=== PATIENT | female | born 1990 | race Caucasian/White ===

== ENCOUNTER 2016-06-01 18:09 | Inpatient (IN) | payer MEDICAID ==
[~2016-06-01] VITALS: Ht 170.2 cm; Wt 92.7 kg
[2016-06-01 18:16] VITALS: Ht 170.2 cm; Wt 92.7 kg
[2016-06-01 18:17] VITALS: BP 135/84; PULSE 131; RESP 20
--- NOTE | 2016-06-01 18:47 | HP ---
Date/Time of Note Date/Time of Note DATE: 06/01/16 TIME: 18:45 OB - History Hx of Present Free Text/Dictation G1P)@31+wks GA with Vaginal bleeding : 1 Para: 0 Care: None Ultrasounds: No ultrasounds Obstetrical Complications: None Medical Complications: None Past Family/Social History * Past Medical, Surgical, Family and Obstetric Histories reviewed from chart. OB Admission Exam Vital Signs Vital Signs Vital Signs Date Time Temp Pulse Resp B/P Pulse Ox O2 Delivery O2 Flow Rate FiO2 06/01/16 18:17 98.0 131 20 135/84 Room Air Physical Exam Extremities: Normal Membranes: Intact Heart Rate: 130's Accelerations: Accelerations Present Decelerations: No Decelerations Varibility: Marked Contractions on Admission: None OB Assessment/Plan Reason for admission: observation Plan: Expectant Management Other plan: Steroids Mg Prenatalogy consult Ultrasound Neonatology consult TRACY SHAHID M.D. Jun 01, 2016 18:47
[2016-06-01] MEDS ORDERED: MAGNESIUM SULFATE 20 GM/500 ML 500 ML IV SCH (19:08)
[2016-06-01] MEDS ORDERED: MAGNESIUM SULFATE 4 GM/100 ML 100 ML IV SCH (19:30)
--- NOTE | 2016-06-01 19:54 | RADRPT ---
PROCEDURE: OB ultrasound for biophysical profile CLINICAL INDICATION: Biophysical profile. . TECHNIQUE: Multiple sonographic images of the pelvis were obtained. Transabdominal and transvagin al view of the gravid uterus are available for review. The images were reviewed on a PACS workstati on. COMPARISON: None FINDINGS: Single intrauterine gestation. Presentation: Cephalic. Partially visualized placenta: Posterior breathing movement = 2/2 tone = 2/2 motion = 2/2 SHIREEN = 2/2 SHIREEN = 15.4 cm heart rate: 148 beats per minute Cervix is closed and is shortened measuring 2.78 cm as visualized transvaginally; contains a trace a mount of fluid within the endocervical canal. IMPRESSION: Single intrauterine gestation. Biophysical profile 8/8 Cervix is closed and is shortened measuring 2.78 cm as visualized transvaginally; contains a trace a mount of fluid within the endocervical canal. RPTAT: AADD .Aren Knowles MD, MD Date Time Electronically viewed and signed by .Aren Knowles MD, on 06/01/2016 19:54 .B/
--- NOTE | 2016-06-01 19:56 | RADRPT ---
PROCEDURE: Obstetrical ultrasound. CLINICAL INDICATION: , evaluation. Pelvic pain. TECHNIQUE: Transabdominal sonographic images of the pelvis are obtained. COMPARISON: No prior studies are available for comparison. FINDINGS: Single intrauterine gestation. There is a cephalic presentation. Measurements were made in order to determine age. The results are as follows: BPD = 8.04 cm HC = 29.29 cm AC = 27.85 cm FL = 6.14 cm Heart rate = 161 beats per minute The placenta is posterior. There is no evidence for an abruption or placenta previa. Ovaries are not visualized. IMPRESSION: Single intrauterine gestation of approximately 32 weeks 1 days by ultrasound criteria. Estimated weight = 1876 g; 42 percentile for estimated ultrasound age. RPTAT: AADD .Aren Knowles MD, Date Time Electronically viewed and signed by .Aren Knowles MD, on 06/01/2016 19:56 .B/
[2016-06-01 19:58] LABS: ADD UMIC YES; URINE BILIRUBIN (Dip) NEGATIVE (NEGATIVE); URINE BLOOD (Dip) 3+ (NEGATIVE); URINE COLOR LT. YELLOW (YELLOW); URINE GLUCOSE (Dip) NEGATIVE (NEGATIVE); URINE KETONES (Dip) TRACE (NEGATIVE); URINE LEUKOCYTE ESTERASE (Dip) 1+ (NEGATIVE); URINE NITRITE (Dip) NEGATIVE (NEGATIVE); URINE UROBILINOGEN (Dip) 0.2 E.U./dL (0.1-1.0)
[2016-06-01 20:13] LABS: URINE TOTAL PROTEIN (Dip) NEGATIVE (NEGATIVE)
[2016-06-01 20:14] LABS: URINE RBCS >200 /HPF (0)
[2016-06-01 20:15] LABS: BACTERIA,URINE MANY; SQUAMOUS EPITHELIAL CELL,UR MANY; TRICHOMONAS,URINE FEW
[2016-06-01 20:42] LABS: BARBITURATES NEGATIVE (NEGATIVE); BENZODIAZEPINES NEGATIVE (NEGATIVE); CANNABINOIDS NEGATIVE (NEGATIVE); COCAINE NEGATIVE (NEGATIVE); OPIATES NEGATIVE (NEGATIVE)
--- NOTE | 2016-06-01 21:24 | QN ---
Documentation Comment Laborist: Follow-up: pt decided to leave [place] to go to [facility] as that is where her mother works. She prefers to be near her mother for an admission as her mother will not drive on a freeway and would find it difficult to come and visit her. Reviewed the US results with pt: cervix is closed and slightly shortened and no evidence of abruption or previa. Pt understands why we cannot allow her to be d/c'ed normally and signed the "against medical advice" paperwork. All questions were answered. The original orders for betamethasone and magnesium were not carried out as the pt is not staying. RINKU LEMA MD Jun 01, 2016 21:24
--- NOTE | 2016-06-01 22:27 | TRIAGE ---
OB Triage Datetime Report Generated by CPN: 06/01/2016 22:27 Datetime: 06/01/2016 18:25 Assessment Type: Triage Maternal Assessment Level of Consciousness: Fully Conscious Headache: Denies Blurred Vision: No Respiratory Effort: Unlabored; Regular Rhythm; Equal Expansion Nausea/Vomiting: Denies RUQ Epigastric Pain: Denies Lower Extremities Edema: Bilateral Lower Extremities Degree: Pitting Upper Extremities Edema: None Degree: None Facial Edema: None Fall Risk Assessment History of Falling: (0) No Secondary Diagnosis: (0) No Ambulatory Aid: (0) Bedrest/Nurse Assist IV Therapy: (0) No Gait: (0) Normal/Bedrest/Immobile Mental Status: (0) Oriented to Own Ability Fall Score: 0 Fall Risk Score Definition: No Risk: No action required Datetime: 06/01/2016 18:24 EGA: 31.6 Datetime: 06/01/2016 18:20 Time of Arrival: 06/01/2016 18:02 Arrived By: Ambulatory Arrived From: Home Chief Complaint: C/O BLEEDING THAT STARTED AT 1632, DENIES ANY LEAKING FLUID. Movement: Decreased Contractions: Irregular Rupture of Membranes: Denies Vaginal Discharge: Present Recent Sexual Intercouse: Denies Abdominal Trauma: Not Applicable Patient Complaints: Other Time Provider Notified: 06/01/2016 18:35 Provider Notified: DR. SHAHID Initial Plan: EFM Datetime: 06/01/2016 18:13 Labor Evaluation Monitor Mode: External Heart Rate Monitor Mode: External US Pain Assessment Pain Scale: 7 Pain Presence: Constant Pain Type: Ache Pain Location: Back
== END 2016-06-01 21:00 | disposition left against medical advice (07) | DRG 782 ==
LOC: OBT 18:09 → L-D 18:09 → OBT 18:36
PROVIDERS: ADMIT Obstetrics & Gynecology; ATTEND Obstetrics & Gynecology
DX: O46.93 Antepartum hemorrhage, unspecified, third trimester (principal); Z3A.31 31 weeks gestation of pregnancy
CPT/HCPCS: 76815; 76817; 76818; 80307; 81001; 81003; G0463